=== PATIENT | female | born 1985 | race Caucasian/White ===

== ENCOUNTER → 2017-09-10 | Outpatient (CLI) | payer OTHER | END | disposition home or self-care (01) | LOC: C.LABSPEC 12:54 | PROVIDERS: ATTEND Physician Assistant | DX: Z11.3 Encounter for screening for infections with a predominantly sexual mode of transmission (principal) ==

== ENCOUNTER → 2017-09-10 | Outpatient (CLI) | payer OTHER | END | disposition home or self-care (01) | LOC: C.PAPS 13:30 | PROVIDERS: ATTEND Physician Assistant | DX: Z01.419 Encounter for gynecological examination (general) (routine) without abnormal findings (principal) ==

== ENCOUNTER 2023-06-13 00:02 | Inpatient (IN) ==
[2023-06-13] MEDS ORDERED: OXYTOCIN 30 UNITS/500 ML BAG IV PRN ×3 (00:56→10:30)
[2023-06-13] MEDS ORDERED: LIDOCAINE 1% LOCAL 20 ML VIAL INFIL PRN (00:56)
[2023-06-13] MEDS ORDERED: PENICILLIN G POTASSIUM 6 MU in DEXTROSE 5% 250 ML IV STA (01:02)
--- NOTE | 2023-06-13 01:04 | History & Physical Report ---
Date of Service June 13, 2023 Assessment & Plan (1) Post-dates : (2) Group B streptococcal infection during : Plan 38 yo at 40 6/7 wga presents in labor VSS Fetus cat 1 Labor - augment prn GBS+, pcn ordered epidural prn, wants to go unmedicated History of Present Illness Chief Complaint: ctx Primary Care Provider: Ayush Lopez MD 38 yo at 40 6/7 wga presents w/ ctx increasing in intensity. +FM; denied LOF,VB PNI GBS+ AMA Past [employer] Hx: G1 2020 G2 SAB G3 current regular cycles no hx stis Allergies Allergy/AdvReac Type Severity Reaction Status Date / Time No Known Allergies Allergy Verified 06/08/23 09:04 Home Medications Medication Instructions Recorded Confirmed Type prenat.vits,christiano,gts-kvof-akkfa 1 tab PO DAILY 10/30/22 06/13/23 History aspirin 81 mg tablet,delayed 81 mg PO DAILY 04/12/23 06/13/23 History release (Adult Low Dose Aspirin) magnesium 30 mg tablet 30 mg PO DAILY 06/12/23 06/12/23 History Patient History Medical History (Updated 06/08/23 @ 10:17 by Elma Tovar MD, FACOG) Elderly primigravida Encounter for anatomic survey History of chicken pox History of COVID-19 12/2021, pcr mn and home test, not hosp; sore throat>resolved. Missed Nausea and vomiting after administration of anesthetic agent Normal labor and delivery Surgical History (Updated 06/13/23 @ 01:00 by Kary Ramirez MD) H/O oral surgery S/P ACL repair lt. S/P dilation and curettage D&E S/P wisdom tooth extraction Family History (Updated 10/30/22 @ 09:52 by Susanne Boo) Mother Breast cancer Grandmother (Paternal) Ovarian cancer Grandfather (Paternal) Myocardial infarction Aunt Breast cancer x2 Father Prostate cancer Denies family history of Colorectal cancer Social History (Updated 10/30/22 @ 09:53 by Susanne Boo) Smoking Status: Never smoker Second Hand Exposure: No; Do You Dip or Chew Tobacco: No; Hx Alcohol Use: No Hx Substance Use: No Preferred Language: [place] Communication Ability: Effective Visual Impairment: No Limitations [employer] Required: No Beliefs That Will Affect Care: None marital status: marital status details: Malik Ley (42) [phone] Current Living Situation: Spouse Current Living Situation Comment: lives with spouse, child, no pets current occupational status: employed current occupation: faculty [employer] Other Information That Helps Us Care for You: No Feels Safe at Home: Yes Safety Concerns: Feels Safe At This Time Childhood Exposure to Second-Hand Smoke: No Dental Care, Regularly: No Physical Activity Frequency: Daily Seatbelt Use: always Sunscreen Use: Yes Assistive Devices: None Physical Exam Genitourinary: OB Exam Monitor Tracing: + external FHT monitor used, + external uterine monitor used (q6-7) and + category I (130/mod/-accel/-decel) 6cm by nursing Results & Data Vital Signs (Past 12 Hours) Vital Signs Temp Pulse Resp BP 06/13/23 00:25 70 122/77 06/13/23 00:26 98.1 F 18 Laboratory Results OB Labs: Blood Type AB Positive 11/05/22 Antibody Screen NEGATIVE 11/05/22 Hemoglobin 12.5 g/dl (12.0-16.0) 03/12/23 Hematocrit 37.4 % (37.0-47.0) 03/12/23 Mean Corpuscular Volume 86.7 fL (80.0-100.0) 11/05/22 Platelet Count 265 K/uL (130-400) 11/05/22 Rubella IgG Antibody Immune (Immune) 11/05/22 Rapid Plasma Reagin Nonreactive (Nonreactive) 11/05/22 Hepatitis B Surface Antigen Neg (Neg) 03/18/20 Hepatitis B Surface Antigen. NON-REACTIVE (NON-REACTIVE) 11/05/22 Hepatitis C Antibody (EIA) NON-REACTIVE (NON-REACTIVE) 11/05/22 HIV (1&2) Ab and P24 Ag, 4th Gener Neg (Neg) 03/18/20 HIV (1&2) Ag and Ab Confirmation NON-REACTIVE (NON-REACTIVE) 11/05/22 Glucose 1 Hour 50 gm Load 115 mg/dl (70-130) 03/12/23 Maternal Serum Alpha Fetoprotein 40.2 ng/mL 12/28/22 OB Optional Labs: Chlamydia trachomatis RNA Not Detected (NotDetected) 11/05/22 Neisseria gonorrhoeae RNA Not Detected (NotDetected) 11/05/22 Alpha Fetoprotein Triple Screen SEE NOTE 12/28/22 Labs Reviewed: cf/sma neg cfDNA neg, female 2022 neg afp - sln GBS+ Diagnostic Findings post plac Coding Level of Care Code None Diagnoses Post-dates O48.0 Group B streptococcal infection during O98.819; B95.1
[2023-06-13 01:28] LABS: Hematocrit (blood only) 39.2 % (37.0-47.0); Hemoglobin 13.5 g/dl (12.0-16.0); Mean Corpuscular Hemoglobin 28.6 pg (25.0-34.0); Mean Corpuscular Hgb Conc 34.4 g/dL (32.0-36.0); Mean Corpuscular Volume 83.1 fL (80.0-100.0); Mean Platelet Volume 10.9 fL (9.4-12.4); Platelet Count 205 K/uL (130-400); RDW Coefficient of Variation 12.7 % (11.5-14.5); RDW Standard Deviation 38.5 fL (36.4-46.3); Red Blood Count 4.72 M/uL (4.20-5.40); White Blood Count 11.19 K/ul (4.8-10.8)
[2023-06-13] MEDS ORDERED: ePHEDrine sulfate 50 MG/ML AMP ONE (02:18)
[2023-06-13] MEDS ORDERED: fentaNYL 2MCG/ML ROPIVACAINE 1.25MG/ML 100 ML BAG EPI ONE (02:18)
[2023-06-13] MEDS ORDERED: BUPIVACAINE 0.25% PF 30 ML VIAL ONE (02:18)
[2023-06-13] MEDS ORDERED: SODIUM CHLORIDE 0.9% PF INJ 10 ML VIAL ONE (02:18)
[2023-06-13] MEDS ORDERED: LIDOCAINE 2%/EPINEPHRINE 1:200,000 20 ML PF ONE (02:18)
[2023-06-13] MEDS ORDERED: fentaNYL citrate PF 100 MCG/2 ML VIAL ONE (02:18)
[2023-06-13] MEDS: LACTATED RINGER'S 1,000 ML IV PRN ×2 (02:19→07:52)
[2023-06-13] MEDS ORDERED: diphenhydrAMINE 50 MG/ML VIAL IV PRN (02:26)
[2023-06-13] MEDS ORDERED: ROPIVACAINE 0.5% PF 5 MG/ML 20 ML VIAL EPI PRN (02:26)
[2023-06-13] MEDS ORDERED: ePHEDrine sulfate 50 MG/ML AMP IV PRN (02:26)
[2023-06-13] MEDS ORDERED: NALBUPHINE HCL INJ 10 MG/ML AMP IV PRN (02:26)
[2023-06-13] MEDS ORDERED: SODIUM CHLORIDE 0.9% PF INJ 10 ML VIAL EPI PRN (02:26)
[2023-06-13] MEDS ORDERED: fentaNYL citrate PF 100 MCG/2 ML VIAL EPI STA (02:26)
[2023-06-13] MEDS ORDERED: BUPIVACAINE 0.25% PF 30 ML VIAL EPI PRN (02:26)
[2023-06-13] MEDS ORDERED: NALOXONE HCL 1 MG in SODIUM CHLORIDE 0.9% 1,000 ML IV PRN (02:26)
[2023-06-13] MEDS ORDERED: SODIUM CHLORIDE 0.9% PF INJ 10 ML VIAL EPI STA (02:26)
[2023-06-13] MEDS ORDERED: fentaNYL citrate PF 100 MCG/2 ML VIAL EPI PRN (02:26)
[2023-06-13] MEDS ORDERED: BUPIVACAINE 0.25% PF 30 ML VIAL EPI STA (02:26)
[2023-06-13] MEDS ORDERED: NALOXONE HCL 0.4 MG/1 ML VIAL/CARP IV PRN (02:26)
[2023-06-13] MEDS ORDERED: LIDOCAINE 2% MPF LOCAL 5 ML VIAL EPI PRN (02:26)
[2023-06-13] MEDS ORDERED: fentaNYL 2MCG/ML ROPIVACAINE 1.25MG/ML 100 ML BAG EPI PRN (02:26)
[2023-06-13] MEDS ORDERED: LIDOCAINE 2%/EPINEPHRINE 1:200,000 20 ML PF EPI STA (02:26)
--- NOTE | 2023-06-13 02:29 | Anesthesiology Consultation ---
Date of Service June 13, 2023 Assessment & Plan (1) Encounter for pre-operative examination: Chart Review Chart Review: Patient NOT seen in Pre Admission Testing and Acceptable Risk for Labor Epidural Consults Requested none History Height/Weight Height: 5 ft 7 in Weight: 84.822 kg Allergies Allergy/AdvReac Type Severity Reaction Status Date / Time No Known Allergies Allergy Verified 06/08/23 09:04 Medications Home Medications Medication Instructions Recorded Confirmed Last Taken prenat.vits,christiano,zyh-phqy-kcnzs 1 tab PO DAILY 10/30/22 06/13/23 Unknown aspirin 81 mg tablet,delayed 81 mg PO DAILY 04/12/23 06/13/23 Unknown release (Adult Low Dose Aspirin) magnesium 30 mg tablet 30 mg PO DAILY 06/12/23 06/12/23 Unknown Active Medications Generic Name Dose Route Start Last Admin Trade Name Freq PRN Reason Stop Dose Admin Lactated Ringer's 1,000 mls @ 125 mls/hr 06/13/23 00:56 06/13/23 02:19 Lr IV 06/15/23 00:55 999 mls/hr .Q8H PRN Administration L&D Protocol Protocol Past Medical History Medical History (Updated 06/13/23 @ 02:28 by Sunil Matamoros MD) Elderly primigravida Encounter for anatomic survey Encounter for pre-operative examination History of chicken pox History of COVID-19 12/2021, pcr mn and home test, not hosp; sore throat>resolved. Missed Nausea and vomiting after administration of anesthetic agent Normal labor and delivery Exercise / Class Metabolic Activity II 4-5 Yardwork/Stairs/Walk up hill Past Family History Family History Mother Breast cancer Grandmother (Paternal) Ovarian cancer Grandfather (Paternal) Myocardial infarction Aunt Breast cancer x2 Father Prostate cancer Denies family history of Colorectal cancer Past Surgical History Surgical History H/O oral surgery S/P ACL repair lt. S/P dilation and curettage D&E S/P wisdom tooth extraction Social History Smoking Status: Never smoker Do You Dip or Chew Tobacco: No Hx Alcohol Use: No alcohol intake frequency: a few times a week Hx Substance Use: No substance use type: does not use Physical Exam Vital Signs Last Vital Signs Temp 36.7 C 06/13/23 00:26 Pulse 85 06/13/23 02:39 Resp 18 06/13/23 00:26 BP 122/77 06/13/23 00:25 Pulse Ox 100 06/13/23 02:39 Testing Laboratory Results 06/13/23 01:16
[2023-06-13] MEDS: PENICILLIN G POTASSIUM 3 MU in DEXTROSE 5% 100 ML IV PRN ×2 (05:01→09:06)
--- NOTE | 2023-06-13 07:36 | Labor Progress Brief Note ---
Date of Service June 13, 2023 Subjective comfortable w/ epidural Assessment & Plan (1) Post-dates : (2) Group B streptococcal infection during : Plan 38 yo at 40 6/7 wga presents in labor VSS Fetus cat 1 Labor - good progress, now s/p arom. Discussed possible pit if ctx do not get closer together/cervix doesn't continue to progress GBS+, pcn ordered epidural in place Admission and Anticipated Discharge Date Admission Date: June 13, 2023 Physical Exam Genitourinary: Manual OB Exam: + cervical dilation 8 cm, + cervical effacement 90%, + station 0 and + amniotic fluid (arom clear) OB Exam Monitor Tracing: + external FHT monitor used, + external uterine monitor used (q2-6) and + category I (140/mod/-accel/-decel) Results & Data Vital Signs (Past 12 Hours) Vital Signs Temp Pulse Resp BP Pulse Ox 06/13/23 07:29 63 100 06/13/23 07:24 69 99 06/13/23 07:19 73 100 06/13/23 07:14 69 96/52 L 99 06/13/23 07:10 84 106/56 L 06/13/23 07:09 84 98 06/13/23 07:04 77 98 06/13/23 06:59 77 96 06/13/23 06:56 80 103/58 L 06/13/23 06:54 80 97 06/13/23 06:49 78 96 06/13/23 06:44 77 96 06/13/23 06:42 76 96/57 L 06/13/23 06:39 77 96 06/13/23 06:34 72 96 06/13/23 06:29 80 96 06/13/23 06:27 71 97/57 L 06/13/23 06:24 75 96 06/13/23 06:19 74 96 06/13/23 06:14 73 96 06/13/23 06:11 74 95/54 L 06/13/23 06:09 72 96 06/13/23 06:04 75 96 06/13/23 05:59 78 18 96 06/13/23 05:56 68 101/58 L 06/13/23 05:54 73 96 06/13/23 05:49 75 96 06/13/23 05:44 70 96 06/13/23 05:40 70 99/58 L 06/13/23 05:39 72 96 06/13/23 05:34 73 97 06/13/23 05:29 79 97 06/13/23 05:24 72 97 06/13/23 05:25 73 105/58 L 06/13/23 05:10 18 06/13/23 05:10 18 06/13/23 05:19 74 97 06/13/23 05:14 77 97 06/13/23 05:12 72 129/53 L 06/13/23 05:09 76 98 06/13/23 05:04 65 97 06/13/23 04:59 81 97 06/13/23 04:56 61 115/61 06/13/23 04:54 72 95 06/13/23 04:49 71 96 06/13/23 04:47 67 94 06/13/23 04:44 70 95 06/13/23 04:41 69 130/61 06/13/23 04:39 66 95 06/13/23 04:34 73 95 06/13/23 04:29 63 96 06/13/23 04:26 61 115/62 06/13/23 04:24 65 97 06/13/23 04:19 71 96 06/13/23 04:14 69 95 06/13/23 04:11 68 117/67 06/13/23 04:09 71 96 06/13/23 04:04 76 95 06/13/23 03:59 68 95 06/13/23 03:56 62 111/64 06/13/23 03:54 70 95 06/13/23 03:49 68 96 06/13/23 03:44 65 96 06/13/23 03:40 60 113/65 06/13/23 03:39 62 97 06/13/23 03:34 62 97 06/13/23 03:29 66 97 06/13/23 03:25 61 117/68 06/13/23 03:24 68 98 06/13/23 03:19 68 99 06/13/23 03:14 71 100 06/13/23 02:50 18 06/13/23 02:50 18 06/13/23 03:09 83 120/74 99 06/13/23 03:07 71 125/77 06/13/23 03:05 75 116/74 06/13/23 03:04 80 99 06/13/23 03:03 76 120/77 06/13/23 03:01 99.1 F 73 18 123/76 06/13/23 02:59 81 121/76 97 06/13/23 02:57 76 125/77 06/13/23 02:55 78 18 124/76 06/13/23 02:54 85 99 06/13/23 02:53 76 120/76 06/13/23 02:51 78 119/79 06/13/23 02:49 77 118/71 100 06/13/23 02:47 81 117/71 06/13/23 02:44 89 100 06/13/23 02:45 79 18 149/73 H 06/13/23 02:39 85 100 06/13/23 02:34 81 99 06/13/23 02:29 77 100 06/13/23 02:24 64 99 06/13/23 00:25 70 122/77 06/13/23 00:26 98.1 F 18 Coding Level of Care Code None Diagnoses Post-dates O48.0 Group B streptococcal infection during O98.819; B95.1
--- NOTE | 2023-06-13 09:58 | Delivery Summary ---
Vaginal Delivery Summary Date of Service June 13, 2023 Vaginal Delivery Summary and 2nd Degree LAC PREOPERATIVE DIAGNOSIS: 1. Single intrauterine at 40 6/7 wga 2. Labor 3. GBS+ POSTOPERATIVE DIAGNOSIS: 1. Single intrauterine at 40 6/7 wga 2. Labor 3. GBS+ 4. Delivered PROCEDURE: 1. Normal spontaneous vaginal delivery. SURGEON: Kary Ramirez MD ANESTHESIA: Epidural. ESTIMATED BLOOD LOSS: 300 mL FLUIDS: Continuous LR. URINE OUTPUT: None. COMPLICATIONS: None. CONDITION: Stable. INDICATIONS: 38 you at 40 6/7 wga presented with complaints of contractions increasing in frequency and intensity. She was found to be 6cm on arrival. Penicillin was started for GBS prophylaxis. She received an epidural for pain control. She underwent AROM and progressed to complete FINDINGS: A viable female , weight pending with Apgars of 8 and 9 at 1 and 5 minutes respectively. SPECIMEN: Cord blood OPERATIVE REPORT: The patient progressed to 10 cm, 100% effaced and +2 station, pushed over intact perineum with anesthesia to deliver a viable female infant, weight and Apgars as above. Head of delivered in RACHEL position. No nuchal cord was present. Body and shoulders were delivered without difficulty. was delivered to maternal abdomen and nursing staff. Delayed cord clamping was performed for 60 seconds. Cord was clamped and cut. Cord blood was obtained. Placenta delivered spontaneously intact with 3-vessel cord. IV oxytocin and fundal massage were given for excellent hemostasis. Vagina, cervix, perineum, and placenta were inspected. A small second degree laceration was noted and repaired using 3-0 vicryl. There was excellent hemostasis. Sponge and needle counts correct x2. No sponges were left behind. Mother and stable in immediate period. [facility] – [place] Vaginal Delivery Charge Vaginal Delivery Codes: 28687 global code for the antepartum, delivery, and post- Delivery Type Details: and 2nd Degree LAC
[2023-06-13] MEDS ORDERED: DIPHTHERIA/TETANUS/PERTUSSIS Vaccine (Tdap, Age 7+yrs) 0.5mL SYR/VL IM ONE (10:30)
[2023-06-13] MEDS ORDERED: bisacodyL 10 MG SUPP PR PRN (10:30)
[2023-06-13] MEDS ORDERED: BENZOCAINE 20% SPRY 85 APPLN/85 GM CAN EXT PRN (10:30)
[2023-06-13] MEDS ORDERED: HYDROCORTISONE ACETATE 25 MG SUPP PR PRN (10:30)
[2023-06-13] MEDS ORDERED: ACETAMINOPHEN 325 MG TAB PO PRN (10:30)
--- NOTE | 2023-06-13 11:57 | Anesthesia Procedure Note ---
Date of Service June 13, 2023 Anesthesia Post Epidural Note Vital Signs Vital Signs: Temp Pulse Resp BP Pulse Ox 37.3 C 81 18 104/64 96 06/13/23 03:01 06/13/23 11:40 06/13/23 05:59 06/13/23 11:40 06/13/23 09:49 Notes Mental Status: alert / awake / arousable Nausea / Vomiting: adequately controlled Pain: adequately controlled Airway Patency, RR, SpO2: stable & adequate BP & HR: stable & adequate Hydration State: stable & adequate Neuraxial Anesthesia: was administered and sensory block is resolving Anesthetic Complications: no major complications apparent and Pt Satisfied with anesthetic care Epidural: Removed without complications and With tip intact
[2023-06-13] MEDS: IBUPROFEN 600 MG TAB PO PRN ×2 (16:16→21:48)
[2023-06-13] MEDS: DOCUSATE SODIUM 100 MG CAP PO SCH (20:55)
--- NOTE | 2023-06-13 21:07 | Obstetrical Progress Note ---
Date of Service <Bernardino Thorpe MD - Last Filed: 06/14/23 07:19> June 13, 2023 Assessment & Plan <Bernardino Thorpe MD - Last Filed: 06/14/23 07:19> (1) (spontaneous vaginal delivery): Plan 38 yo , day 1, status post of girl, on 06/13/23, w/ 2nd deg LAC - Pt doing well clinically. Feels well today. Eating well, voiding well, ambulating well. Pain well controlled with PRN pain meds. - Routine care -- OOB, ambulation, diet progression as tolerated Vital Signs reviewed and WNL. (Tmax at 37.3 C) Hemoglobin Reviewed. 13.5 (06/13/23). Blood Type: AB+, GBS+, Rubella Immune. Encourage ambulation, monitor and control pain with Motrin PRN, resume regular diet, monitor lochia. Breast feeding encouraged. After discharge will have 6 week follow-up with Dr. Ramirez. Pt counselled on discharge instructions. <Kary Ramirez MD - Last Filed: 06/14/23 07:21> (1) (spontaneous vaginal delivery): Subjective <Bernardino Thorpe MD - Last Filed: 06/14/23 07:19> Ambulation: ambulating normally Voiding: no voiding problems Passing Gas:: Yes Diet Tolerance:: regular diet Lochia:: Moderate Feeding Type:: breast feeding Current Pain Level(1-10): 5 (in perineal area, stomach cramping, worse when ambulating) Constitutional: no fever or no chills Respiratory: no cough or no dyspnea Cardiovascular: no chest pain or no palpitations Breast: no breast pain Gastrointestinal: + constipation (still no BM since delivery); no nausea, no vomiting or no diarrhea/loose stools Musculoskeletal: no myalgia (no calf pain or tenderness) Physical Exam <Bernardino Thorpe MD - Last Filed: 06/14/23 07:19> Constitutional WD/WN, vitals as above Respiratory normal respiratory effort, lungs clear to auscultation Cardiovascular RRR, no murmur, no edema Gastrointestinal (Abdomen) normal bowel sounds, soft, nontender, no hepatosplenomegaly Musculoskeletal Extremities: extremities normal to inspection (no calf pain or tenderness) Results & Data <Bernardino Thorpe MD - Last Filed: 06/14/23 07:19> Vital Signs (Past 12 Hours) Vital Signs Temp Pulse Pulse Resp BP BP Pulse Ox 06/13/23 15:30 36.7 C 62 16 118/76 06/13/23 12:30 36.9 C 66 16 118/67 95 06/13/23 11:40 81 104/64 06/13/23 11:25 68 106/56 L 06/13/23 11:10 63 112/58 L 06/13/23 10:55 61 124/60 06/13/23 10:40 66 122/60 06/13/23 10:25 71 115/56 L 06/13/23 10:10 79 119/68 06/13/23 09:55 81 119/65 06/13/23 09:49 90 96 06/13/23 09:50 90 116/57 L 06/13/23 09:44 85 96 06/13/23 09:40 89 114/56 L 06/13/23 09:39 98 H 97 06/13/23 09:34 95 H 100 06/13/23 09:29 106 H 100 06/13/23 09:26 92 H 89 L 06/13/23 09:27 110 H 135/63 06/13/23 09:24 101 H 100 06/13/23 09:19 90 99 06/13/23 09:14 91 H 97 06/13/23 09:11 80 92/52 L 06/13/23 09:09 89 98 O2 Del Method 06/13/23 15:30 Room Air 06/13/23 12:30 Room Air 06/13/23 11:40 06/13/23 11:25 06/13/23 11:10 06/13/23 10:55 06/13/23 10:40 06/13/23 10:25 06/13/23 10:10 06/13/23 09:55 06/13/23 09:49 06/13/23 09:50 06/13/23 09:44 06/13/23 09:40 06/13/23 09:39 06/13/23 09:34 06/13/23 09:29 06/13/23 09:26 06/13/23 09:27 06/13/23 09:24 06/13/23 09:19 06/13/23 09:14 06/13/23 09:11 06/13/23 09:09 <Kary Ramirez MD - Last Filed: 06/14/23 07:21> Co-Signing Physician Notes Resident Physician Supervision Note: I interviewed and examined the patient. Discussed with Dr. Thorpe and agree with findings and plan as documented in the note. Any exceptions or clarifications are listed here: PP1 s/p , doing well. VSS, exam benign and wnl. Desires d/c home, stable to do so Documented By: Kary Ramirez MD
[2023-06-14] MEDS: IBUPROFEN 600 MG TAB PO PRN ×2 (04:12→12:20)
[2023-06-14] MEDS ORDERED: PRENATAL VITAMIN 1 TAB PO SCH (08:00)
[2023-06-14] MEDS ORDERED: FERROUS SULFATE 325 MG TAB PO SCH (08:00)
[2023-06-14] MEDS: DOCUSATE SODIUM 100 MG CAP PO SCH (08:11)
[2023-06-14] MEDS ORDERED: bisacodyL 5 MG TABEC PO SCH (20:00)
== END 2023-06-14 13:29 | disposition home or self-care (01) | DRG 807 ==
LOC: OPB 00:02 → 4S1 00:04 → 4E2 12:21